=== PATIENT | male | born 1990 | race American Indian/Alaskan Native ===

== ENCOUNTER 2020-09-05 09:00 | Emergency (ER) | payer SELFPAY ==
[2020-09-05 09:22] VITALS: BP 144/95
[2020-09-05] MEDS ORDERED: DIPHtheria,PERTUSSIS(ACELL),TETANUS VACCINE/PF 0.5 ML VIAL IM ONE (12:01)
[2020-09-05] MEDS ORDERED: LIDOCAINE (1%) 10 MG/1 ML VIAL 20 ML MDV INFILTRATI ONE (12:01)
[2020-09-05] MEDS ORDERED: HYDROcodone/ACETAMINOPHEN 10-325MG TAB PO ONE (12:01)
--- NOTE | 2020-09-05 12:01 | Emergency Department Report ---
ED ENT HPI - General Chief complaint: Animal Bite Stated complaint: MOUTH DOG BITE Time Seen by Provider: 09/05/20 11:37 Source: patient Mode of arrival: Ambulatory Limitations: No Limitations - History of Present Illness Initial comments: 29-year-old male presents to the ER today complaint of a dog bite to his upper lip. Patient states that this incident occurred around 8 AM this morning. Patient states that he tried to kiss his pitbull when he got home this morning when it bit him. Patient reports laceration to his right upper lip with bleeding. He is not up-to-date on his tetanus. The dog is up to date on its immunizations. He reports no other symptoms at this time. MD complaint: trauma/injury, other (Dog bite upper lip ) -: Sudden (this morning around 8am) - Related Data Previous Rx's Medication Instructions Recorded Last Taken Type Amoxicillin/Potassium Clav 1 each PO BID #14 tablet 09/05/20 Unknown Rx [Augmentin 875-125 Tablet] Ibuprofen [Motrin] 800 mg PO Q8HR PRN #30 tablet 09/05/20 Unknown Rx Allergies Allergy/AdvReac Type Severity Reaction Status Date / Time No Known Allergies Allergy Unverified 09/05/20 09:21 ED Dental HPI - General Chief complaint: Animal Bite Stated complaint: MOUTH DOG BITE Time Seen by Provider: 09/05/20 11:37 Source: patient Mode of arrival: Ambulatory Limitations: No Limitations - Related Data Previous Rx's Medication Instructions Recorded Last Taken Type Amoxicillin/Potassium Clav 1 each PO BID #14 tablet 09/05/20 Unknown Rx [Augmentin 875-125 Tablet] Ibuprofen [Motrin] 800 mg PO Q8HR PRN #30 tablet 09/05/20 Unknown Rx Allergies Allergy/AdvReac Type Severity Reaction Status Date / Time No Known Allergies Allergy Unverified 09/05/20 09:21 ED Review of Systems ROS: Stated complaint: MOUTH DOG BITE Other details as noted in HPI Comment: All other systems reviewed and negative Constitutional: denies: chills, fever ENT: other (Upper lip laceration) Respiratory: denies: cough, shortness of breath, wheezing Cardiovascular: denies: chest pain, palpitations Gastrointestinal: denies: abdominal pain, nausea, diarrhea Skin: other (Lip laceration) Neurological: denies: headache, weakness, paresthesias Psychiatric: denies: anxiety, depression ED Past Medical Hx - Past Medical History Previous Medical History?: No - Surgical History Past Surgical History?: No - Medications Home Medications: Home Medications Medication Instructions Recorded Confirmed Last Taken Type Amoxicillin/Potassium Clav 1 each PO BID #14 tablet 09/05/20 Unknown Rx [Augmentin 875-125 Tablet] Ibuprofen [Motrin] 800 mg PO Q8HR PRN #30 tablet 09/05/20 Unknown Rx ED Physical Exam - General Limitations: No Limitations General appearance: alert, in no apparent distress - Head Head exam: Present: atraumatic, normocephalic, normal inspection - Eye Eye exam: Present: normal appearance, PERRL, EOMI Pupils: Present: normal accommodation - ENT ENT exam: Present: normal exam, mucous membranes moist, other (Avulsion flap laceration noted to right upper lip with involvement of the vermilion border; its not a through and through lack. There is mild swelling around the wound with moderate tenderness palpation and mild bleeding which can be controlled with pressure. No apparent foreign body.) - Neck Neck exam: Present: normal inspection - Respiratory Respiratory exam: Absent: respiratory distress - Cardiovascular Cardiovascular Exam: Present: regular rate - Neurological Exam Neurological exam: Present: alert, oriented X3, CN II-XII intact - Psychiatric Psychiatric exam: Present: normal affect, normal mood - Skin Skin exam: Present: intact ED Course Vital Signs 09/05/20 09:21 Temperature 97.6 F Pulse Rate 76 Respiratory 16 Rate Blood Pressure 144/95 [Right] O2 Sat by Pulse 100 Oximetry - Laceration /Wound Repair Right Upper Face Wound Location: mouth (upper lip) Wound Length (cm): 2 Wound's Depth, Shape: superficial, irregular, flap Wound Explored: clean Irrigated w/ Saline (ccs): 50 Betadine Prep?: Yes Anesthesia: 1% Lidocaine Volume Anesthetic (ccs): 6 Wound Repaired With: sutures Suture Size/Type: 4:0 (vicryl) Layer Closure?: No Sterile Dressing Applied?: Yes Progress: Patient tolerated procedure well. No complications. Critical care attestation.: If time is entered above; I have spent that time in minutes in the direct care of this critically ill patient, excluding procedure time. ED Disposition Clinical Impression: Dog bite, Lip laceration Disposition: TO HOME OR SELFCARE Is pt being admited?: No Does the pt Need Aspirin: No Condition: Stable Instructions: Animal Bite, Adult, [id number], Facial Laceration, [id number] Additional Instructions: The sutures are dissolvable and should dissolve in 1 to 2 weeks. Keep the wound clean with soap and water do not use peroxide or alcohol. You can apply Neosporin after each cleaning. Also keep the wound clean after eating to prevent any food material from getting stuck in the wound. Take the antibiotics and the pain medication as prescribed. Return to the ER if your symptoms changes or worsens in any way. Prescriptions: Amoxicillin/Potassium Clav [Augmentin 875-125 Tablet] 1 each PO BID #14 tablet Ibuprofen [Motrin] 800 mg PO Q8HR PRN #30 tablet PRN Reason: Pain , Severe (7-10) Referrals: PRIMARY CARE, [Primary Care Provider] - 3-5 Days Forms: Work/School Release Form(ED) Time of Disposition: 12:55
[2020-09-05] MEDS ORDERED: NEOMY 3.5 MG/BACIT 400 UNITS/POLY B 5000 UNITS/GM OINT PACKET TP ONE (12:51)
== END 2020-09-05 13:18 | disposition home or self-care (01) ==
LOC: ED 09:00
DX: S01.511A Laceration without foreign body of lip, initial encounter (principal); Z79.899 Other long term (current) drug therapy; W54.0XXA Bitten by dog, initial encounter; Y93.89 Activity, other specified; Y92.89 Other specified places as the place of occurrence of the external cause; Y99.8 Other external cause status
CPT/HCPCS: 12011; 90471; 90715; 99282; A6250